=== PATIENT | male | born 1995 | race Caucasian/White ===

== ENCOUNTER 2017-07-21 15:53 | Emergency (ER) | payer BC, OTHER ==
[~2017-07-21] VITALS: Ht 195.6 cm; Wt 91.0 kg
[~2017-07-21 15:53] MED LIST: Z.0.NO CURRENT MEDS
[2017-07-21 16:04] VITALS: BP 144/79; PULSE 107; RESP 21; TEMP 98.6; O2SAT 99
--- NOTE | 2017-07-21 16:13 | PD ---
HPI Chief Complaint: SOB, panic attack Time Seen by Provider: 16:06 Travel History International Travel<30 days: No Contact w/Intl Traveler<30days: No History of Present Illness HPI 21-year-old male presents to emergency department after an accidental ingestion of Adderall 40 mg that occurred about noon today. Patient states that he was given what I thought was Advil soft but his friend called back and said that it was Adderall. Patient was taking a pill or headache after heavily drinking last night because of [place]. She has taken Adderall 10 mg prior without issues but currently feels "numbness and tingling" in the lower extremities. According to that, his heart rate was in the 130s and patient was flushed. He was given 750 cc normal saline IV and they called poison control who recommended monitoring and benzos for extreme agitation. Currently, patient is complaining of occasional palpitations without chest pain. States when he takes a deep breath he has a "weird feeling" in his chest. He denies shortness of breath, back pain, abdominal pain. Patient states that he called [facility] because the symptoms had been persistent. [facility] Past Medical History Anxiety: Yes Immunizations Current: Yes Past Surgical History Valve Replacement: Yes Social History Alcohol Use: No Tobacco Use: No Substance Use: No Allergies-Medications (Allergen,Severity, Reaction): Coded Allergies: No Known Allergies (Verified , 08/24/09) Reported Meds & Prescriptions Reported Meds & Active Scripts Active Reported No Current Meds (Miscellaneous Medication) Misc Review of Systems Except as stated in HPI: all other systems reviewed are Neg Physical Exam Narrative GENERAL: Well-developed well-nourished in no apparent distress SKIN: Focused skin assessment warm/dry. HEAD: Atraumatic. Normocephalic. EYES: Pupils equal and round. No scleral icterus. No injection or drainage. ENT: No nasal bleeding or discharge. Mucous membranes pink and moist. NECK: Trachea midline. No JVD. CARDIOVASCULAR: Regular rate and rhythm. No murmur appreciated. RESPIRATORY: No accessory muscle use. Clear to auscultation. Breath sounds equal bilaterally. MUSCULOSKELETAL: No obvious deformities. No clubbing. No cyanosis. No edema. Bilateral lower extremities- neurovascularly intact, grade 5 out of 5 strength. NEUROLOGICAL: Awake and alert. No obvious cranial nerve deficits. Motor grossly within normal limits. Normal speech. PSYCHIATRIC: Appropriate mood and affect; insight and judgment normal. Data Data Last Documented VS Vital Signs Date Time Temp Pulse Resp B/P (MAP) Pulse Ox O2 Delivery O2 Flow Rate FiO2 07/21/17 18:17 87 18 148/67 (94) 98 Room Air 07/21/17 16:04 98.6 Orders Orders Electrocardiogram (07/21/17 16:02) Basic Metabolic Panel (Bmp) (07/21/17 16:02) Aspirin Chew (Aspirin Chew) (07/21/17 16:15) Creatine Kinase (Cpk) (07/21/17 16:02) Drug Screen, Random Urine (07/21/17 16:24) Electrocardiogram (07/21/17 18:30) Ed Discharge Order (07/21/17 18:26) Labs Laboratory Tests Test 07/21/17 16:10 07/21/17 17:00 Blood Urea Nitrogen 15 MG/DL Creatinine 1.06 MG/DL Random Glucose 85 MG/DL Calcium Level 8.7 MG/DL Sodium Level 140 MEQ/L Potassium Level 4.2 MEQ/L Chloride Level 108 MEQ/L Carbon Dioxide Level 23.7 MEQ/L Anion Gap 8 MEQ/L Estimat Glomerular Filtration Rate 87 ML/MIN Total Creatine Kinase 125 U/L Urine Opiates Screen NEG Urine Barbiturates Screen NEG Urine Amphetamines Screen POS Urine Benzodiazepines Screen NEG Urine Cocaine Screen NEG Urine Cannabinoids Screen NEG MDM Medical Decision Making Medical Screen Exam Complete: Yes Emergency Medical Condition: Yes Differential Diagnosis Accidental ingestion, overdose, polysubstance abuse Narrative Course 21-year-old male presents to emergency department after an accidental ingestion of Adderall 40 mg that occurred about noon today. Patient states that he was given what I thought was Advil soft but his friend called back and said that it was Adderall. Patient was taking a pill or headache after heavily drinking last night because of [place]. She has taken Adderall 10 mg prior without issues but currently feels "numbness and tingling" in the lower extremities. According to that, his heart rate was in the 130s and patient was flushed. He was given 750 cc normal saline IV and they called poison control who recommended monitoring and benzos for extreme agitation. Currently, patient is complaining of occasional palpitations without chest pain. States when he takes a deep breath he has a "weird feeling" in his chest. He denies shortness of breath, back pain, abdominal pain. Patient states that he called [facility] because the symptoms had been persistent. Vital signs-tachycardia with mild elevation of blood pressure EKG demonstrated sinus tachycardia. Points control was consulted in the emergency department today. They recommended a follow-up EKG in 2 hours. In addition, benzos for symptomatic relief. Patient reassessed. Patient states that he feels much better. The "numbness" in his lower extremities have improved. He is resting comfortably in bed eating dinner with his mother. Second EKG - sinus rhythm without ST elevations or depressions. Vital signs improved. HR 80s, BP 140s/80s. Pt feels much better. He is ready to go home. Patient advised follow-up with primary care physician within 2-3 days. Return to the emergency part for worsening or persistent symptoms. Diagnosis Primary Impression: Ingestion, drug, inadvertent or accidental Qualified Codes: T50.901A - Poisoning by unspecified drugs, medicaments and biological substances, accidental (unintentional), initial encounter Referrals: Primary Care Physician Additional Instructions: Follow up with your primary care physician within 2-3 days. If your symptoms persist or worsen, return to the emergency department. Disposition: 01 DISCHARGE HOME Condition: Stable Perla Sweeney Jul 21, 2017 16:13
[2017-07-21] MEDS ORDERED: ASPIRIN 81 MG CHEW TAB PO ONE (16:15)
[2017-07-21 17:13] LABS: BICARBONATE 23.7 MEQ/L (21.0-32.0); CALCIUM 8.7 MG/DL (8.5-10.1); CREATININE 1.06 MG/DL (0.60-1.30)
[2017-07-21 17:31] VITALS: BP 152/71; PULSE 79; RESP 18; O2SAT 99
[2017-07-21 18:17] VITALS: BP 148/67; PULSE 87; RESP 18; O2SAT 98
--- NOTE | 2017-07-22 17:43 | EKG ---
Date Performed: 07/21/2017 Time Performed: 16:06:30 PTAGE: 21 years EKG: SINUS TACHYCARDIA BORDERLINE RIGHT AXIS DEVIATION ABNORMAL RHYTHM ECG NO PREVIOUS TRACING DOCTOR: Edwin Newsome Interpretating Date/Time 07/22/2017 17:43:09
--- NOTE | 2017-07-22 17:44 | EKG ---
Date Performed: 07/21/2017 Time Performed: 18:21:42 PTAGE: 21 years EKG: Sinus rhythm MODERATE INTRAVENTRICULAR CONDUCTION DELAY BORDERLINE ECG PREVIOUS TRACING : 07/21/2017 16.06 Compared to prior tracing no significant change DOCTOR: Edwin Newsome Interpretating Date/Time 07/22/2017 17:43:36
== END 2017-07-21 19:09 | disposition home or self-care (01) ==
LOC: NEPE 15:53
DX: T43.621A Poisoning by amphetamines, accidental (unintentional), initial encounter (principal); R20.0 Anesthesia of skin; R20.2 Paresthesia of skin; F41.9 Anxiety disorder, unspecified; R00.0 Tachycardia, unspecified; R94.31 Abnormal electrocardiogram [ECG] [EKG]
CPT/HCPCS: 80048; 80307; 82550; 93005; 99284